=== PATIENT | female | born 1940 | race Caucasian/White ===

== ENCOUNTER → 2018-11-07 | Outpatient (CLI) | payer MEDICARE ==
[~2018-11-07] MED LIST: PRAV20TA2 PO; VERA120C2 PO; Vitamins PO
[2018-11-07 10:49] LABS: MICROSCOPIC AUTO
[2018-11-07 10:50] LABS: CULTURE INDICATED? YES
[2018-11-07 12:36] LABS: CHLORIDE 106 mmol/L (98-107)
[2018-11-07 12:44] LABS: ALANINE AMINOTRANSFERASE 32 U/L (12-78); ALBUMIN 3.6 g/dL (3.4-5.0); ALKALINE PHOSPHATASE 90 U/L (45-117); ANION GAP 5 mmol/L (5-15); BILIRUBIN,TOTAL 0.4 mg/dL (0.2-1.0); TOTAL PROTEIN 7.9 g/dL (6.4-8.2)
== END | disposition home or self-care (01) ==
LOC: STAR 09:49
PROVIDERS: ATTEND Obstetrics & Gynecology
DX: Z01.818 Encounter for other preprocedural examination (principal); N81.10 Cystocele, unspecified; N81.6 Rectocele; Z88.9 Allergy status to unspecified drugs, medicaments and biological substances
CPT/HCPCS: 36415; 80053; 81001; 87086; 93005

== ENCOUNTER 2018-11-13 12:24 | Observation (INO) | payer MEDICARE ==
[~2018-11-13] VITALS: Ht 152.4 cm; Wt 62.4 kg
[2018-11-13] MEDS ORDERED: LACTATED RINGERS 1,000 ML IV SCH (12:54)
[2018-11-13] MEDS ORDERED: ACETAMINOPHEN 500 MG TABLET PO ONE (13:00)
[2018-11-13] MEDS ORDERED: GABAPENTIN 300 MG CAPSULE PO ONE (13:00)
[2018-11-13] MEDS ORDERED: ONDANSETRON ODT 8 MG PO ONE (13:00)
[2018-11-13 13:31] VITALS: BP 135/72
[2018-11-13] MEDS ORDERED: BUPIVACAINE/PF 0.25% ONE (14:49)
[2018-11-13] MEDS ORDERED: ESTROGENS CONJUGATED VAG CRM 0.625MG/1G, 30GM ONE (14:49)
[2018-11-13] MEDS ORDERED: EPINEPHRINE 1 MG/ML, 1ML ONE (14:50)
[2018-11-13] MEDS ORDERED: BACITRACIN 50,000 UNIT ONE (14:50)
[2018-11-13] MEDS ORDERED: MIDAZOLAM 1 MG/ML, 2ML ONE (14:57)
[2018-11-13] MEDS ORDERED: FENTANYL PF 100 MCG/2ML ONE (14:57)
[2018-11-13] MEDS ORDERED: DEXAMETHASONE 4 MG/ML, 1ML ONE (15:03)
[2018-11-13] MEDS ORDERED: LIDOCAINE-MPF 2% ,5ML ONE (15:03)
[2018-11-13] MEDS ORDERED: CEFAZOLIN 1,000 MG ONE (15:03)
[2018-11-13] MEDS ORDERED: PROPOFOL 10 MG/ML, 20ML ONE (15:03)
[2018-11-13] MEDS ORDERED: SUCCINYLCHOLINE 20 MG/ML, 10ML ONE (15:03)
[2018-11-13] MEDS ORDERED: THROMBIN 5,000 UNIT VIAL TP ONE (15:53)
[2018-11-13] MEDS ORDERED: METOCLOPRAMIDE 5 MG/ML, 2ML IV PRN (16:00)
[2018-11-13] MEDS ORDERED: HYDROmorphone 2 MG/ML, 1ML IVPush PRN (16:00)
[2018-11-13] MEDS ORDERED: MEPERIDINE/PF 25MG/0.5ML IVPush PRN (16:00)
[2018-11-13] MEDS ORDERED: LORazepam 2 MG/ML, 1ML IVPush PRN (16:00)
[2018-11-13] MEDS ORDERED: LABETALOL 5MG/ML, 20ML IV PRN (16:00)
[2018-11-13] MEDS ORDERED: OXYcodone 5 MG/5 ML ORAL.SOL UDC PO PRN (16:00)
[2018-11-13] MEDS ORDERED: FENTANYL PF 100 MCG/2ML IV PRN ×2 (16:00→21:00)
[2018-11-13] MEDS ORDERED: hydrALAzine 20 MG/ML, 1ML IV PRN (16:00)
[2018-11-13] MEDS ORDERED: OXYcodone 5 MG/5 ML ORAL.SOL UDC ONE (16:29)
[2018-11-13] MEDS: LACTATED RINGERS 1,000 ML IV SCH (19:29)
[2018-11-13] MEDS ORDERED: ONDANSETRON 2MG/ML, 2ML IVPush PRN (19:30)
[2018-11-13] MEDS ORDERED: IBUPROFEN 600 MG TABLET PO PRN ×2 (19:30→21:00)
[2018-11-13] MEDS ORDERED: HYDROcodone/APAP 5/325 TABLET PO PRN ×2 (19:30→21:00)
[2018-11-13 20:31] VITALS: BP 113/63
[2018-11-13] MEDS ORDERED: ONDANSETRON 2MG/ML, 2ML IV PRN (21:00)
[2018-11-13 23:22] VITALS: BP 119/73
[2018-11-14] MEDS: LACTATED RINGERS 1,000 ML IV SCH ×2 (03:29→11:29)
[2018-11-14 04:06] VITALS: BP 107/64
[2018-11-14 06:06] LABS: BASOPHILS # (AUTO) 0.09 x10^3/uL (0-0.1); BASOPHILS % (AUTO) 1 % (0-1); EOSINOPHILS % (AUTO) 0 % (1-7); LYMPHOCYTES % (AUTO) 8 % (22-44); MD NO; MEAN CORPUSCULAR HEMOGLOBIN 29.1 pg (27.0-34.8); MEAN CORPUSCULAR HGB CONC 33.7 g/dL (32.4-35.8); MEAN CORPUSCULAR VOLUME 86.2 fL (80-100); MEAN PLATELET VOLUME 8.8 fL (7.4-10.4); MONOCYTES # (AUTO) 0.39 x10^3/uL (0.2-0.8); MONOCYTES % (AUTO) 4 % (2-9); NEUTROPHILS # (AUTO) 9.14 x10^3/uL (1.8-6.8); NEUTROPHILS % (AUTO) 88 % (42-75); PLATELET COUNT 227 x10^3/uL (130-400); RED BLOOD COUNT 4.44 x10^6/uL (3.82-5.3); RED CELL DISTRIBUTION WIDTH 13.1 % (9.6-15.2)
[2018-11-14 06:15] LABS: ALANINE AMINOTRANSFERASE 462 U/L (12-78); ANION GAP 8 mmol/L (5-15); CALCIUM 8.6 mg/dL (8.5-10.1); CHLORIDE 104 mmol/L (98-107); CREATININE 0.67 mg/dL (0.55-1.02)
[2018-11-14 06:18] LABS: ALKALINE PHOSPHATASE 161 U/L (45-117); BILIRUBIN,TOTAL 0.5 mg/dL (0.2-1.0); TOTAL PROTEIN 6.9 g/dL (6.4-8.2)
[2018-11-14 07:59] VITALS: BP 115/69
[2018-11-14] MEDS ORDERED: ACETAMINOPHEN 325 MG TABLET PO PRN (08:00)
[2018-11-14] MEDS ORDERED: OMEPRAZOLE 20 MG CAPSULE.DR PO SCH (08:00)
[2018-11-14] MEDS ORDERED: HYDR-3240 PO (12:34)
[2018-11-14] MEDS ORDERED: DOCU-131 PO (12:35)
[2018-11-14] MEDS ORDERED: IBUP200T49 PO (12:35)
[2018-11-14] MEDS ORDERED: CEPH-368 PO (12:36)
[2018-11-14] MEDS ORDERED: ONDA4TAB7 PO (12:36)
[2018-11-14 12:43] VITALS: BP 116/72
== END 2018-11-14 12:45 | disposition home or self-care (01) ==
LOC: OUT 12:24 → 4NOR 19:50 → OUT 20:29 → 4NOR 20:30
PROVIDERS: ADMIT Obstetrics & Gynecology; ATTEND Obstetrics & Gynecology
DX: N81.10 Cystocele, unspecified (principal); N81.6 Rectocele; N39.3 Stress incontinence (female) (male); K46.9 Unspecified abdominal hernia without obstruction or gangrene
CPT/HCPCS: 36415; 51992; 57265; 80053; 85025; 96374; C1771; G0378; J0171; J0330; J0690; J1100; J2250; J2405; J2704; J3010; J3490; J7120; Q0162

== ENCOUNTER 2019-02-04 10:28 | Outpatient (CLI) | payer MEDICARE ==
[~2019-02-04 10:28] MED LIST changes: +CEPH-368 PO; +DOCU-131 PO; +HYDR-3240 PO; +IBUP200T49 PO; +ONDA4TAB7 PO
[2019-02-04] MEDS ORDERED: NITR100C6 PO (12:10)
== END 2019-02-04 23:59 | disposition home or self-care (01) ==
LOC: STAR 10:28
PROVIDERS: ATTEND Obstetrics & Gynecology Female Pelvic Medicine and Reconstructive Surgery
DX: Z02.9 Encounter for administrative examinations, unspecified (principal)

== ENCOUNTER 2019-02-11 12:16 | Day surgery (SDC) | payer MEDICARE ==
[~2019-02-11] VITALS: Ht 152.4 cm; Wt 62.0 kg
[~2019-02-11 12:16] MED LIST changes: +BUPIVACAINE/PF 0.25% ONE; +EPINEPHRINE 1 MG/ML, 1ML ONE; +NEOMY/POLYMYXIN B GU IRR. 1 ML ONE; +NITR100C6 PO
[2019-02-11] MEDS ORDERED: LACTATED RINGERS 1,000 ML IV SCH (12:32)
[2019-02-11] MEDS ORDERED: SCOPOLAMINE PATCH, 1.5MG PATCH.TD72 TD ONE (13:00)
[2019-02-11] MEDS ORDERED: ACETAMINOPHEN 500 MG TABLET PO ONE (13:00)
[2019-02-11] MEDS ORDERED: DIAZEPAM 5 MG TABLET PO ONE (13:00)
[2019-02-11] MEDS ORDERED: GABAPENTIN 300 MG CAPSULE PO ONE (13:00)
[2019-02-11] MEDS ORDERED: FENTANYL PF 250 MCG/5ML ONE (15:35)
[2019-02-11] MEDS ORDERED: PROPOFOL 50 ML ONE (15:37)
[2019-02-11] MEDS ORDERED: ONDANSETRON 2MG/ML, 2ML ONE (15:53)
[2019-02-11] MEDS ORDERED: CEFAZOLIN 1,000 MG ONE (15:53)
[2019-02-11] MEDS ORDERED: PROPOFOL 10 MG/ML, 50ML ONE (15:53)
[2019-02-11] MEDS ORDERED: FUROSEMIDE 20 MG/2 ML ONE (16:21)
[2019-02-11] MEDS ORDERED: hydrALAzine 20 MG/ML, 1ML IV PRN (16:30)
[2019-02-11] MEDS ORDERED: EPHEDRINE 50 MG/ML, 1ML IVPush PRN (16:30)
[2019-02-11] MEDS ORDERED: METOPROLOL 1 MG/ML, 5ML IV PRN (16:30)
[2019-02-11] MEDS ORDERED: PROMETHAZINE 25 MG/ML, 1ML IV PRN (16:30)
[2019-02-11] MEDS ORDERED: MORPHINE SULFATE 4 MG/ML, 1ML IVPush PRN (16:30)
[2019-02-11] MEDS ORDERED: ONDANSETRON ODT 8 MG PO PRN (16:30)
[2019-02-11] MEDS ORDERED: ONDANSETRON 2MG/ML, 2ML IV PRN (16:30)
[2019-02-11] MEDS ORDERED: DIPHENHYDRAMINE 50 MG/ML, 1ML IVPush PRN (16:30)
[2019-02-11] MEDS ORDERED: DIAZEPAM 5 MG/ML, 2ML IVPush PRN (16:30)
[2019-02-11] MEDS ORDERED: MIDAZOLAM 1 MG/ML, 2ML IV PRN (16:30)
[2019-02-11] MEDS ORDERED: FENTANYL PF 100 MCG/2ML ONE (17:13)
[2019-02-11] MEDS ORDERED: OXYcodone 5 MG/5 ML ORAL.SOL UDC ONE ×2 (17:13→17:51)
[2019-02-11] MEDS: FENTANYL PF 100 MCG/2ML IV PRN ×2 (17:15→17:36)
[2019-02-11] MEDS: OXYcodone 5 MG/5 ML ORAL.SOL UDC PO PRN ×2 (17:17→17:52)
[2019-02-11] MEDS ORDERED: OXYcodone/APAP 5/325MG TABLET PO PRN (19:00)
[2019-02-11] MEDS ORDERED: KETOROLAC 30 MG/1 ML IV PRN (19:00)
[2019-02-11] MEDS ORDERED: IBUPROFEN 600 MG TABLET PO PRN (19:00)
[2019-02-11] MEDS ORDERED: HYDROmorphone 1 MG/ML, 1ML INJ IV PRN (19:00)
[2019-02-11] MEDS ORDERED: HYDROcodone/APAP 5/325 TABLET PO PRN (19:00)
[2019-02-11 20:51] VITALS: BP 121/91
== END 2019-02-11 21:20 | disposition home or self-care (01) ==
LOC: OUT 12:16 → 4NOR 18:24 → OUT 21:20
PROVIDERS: ATTEND Obstetrics & Gynecology Female Pelvic Medicine and Reconstructive Surgery
DX: N99.3 Prolapse of vaginal vault after hysterectomy (principal); N39.46 Mixed incontinence; I10 Essential (primary) hypertension; E78.00 Pure hypercholesterolemia, unspecified; Z78.0 Asymptomatic menopausal state; Z90.722 Acquired absence of ovaries, bilateral; Z90.79 Acquired absence of other genital organ(s); Z79.899 Other long term (current) drug therapy
CPT/HCPCS: 57265; 57282; 57288; C1771; J0690; J1940; J2405; J2704; J3010; J3490; J7120; G0378; J0171